=== PATIENT | male | born 1985 | race American Indian/Alaskan Native ===

== ENCOUNTER 2019-06-24 03:38 | Emergency (ER) | payer SELFPAY ==
[2019-06-24 03:47] VITALS: BP 130/83
== END 2019-06-24 07:02 | disposition left against medical advice (07) ==
LOC: ED 03:38
DX: F41.9 Anxiety disorder, unspecified (principal); Z53.21 Procedure and treatment not carried out due to patient leaving prior to being seen by health care provider